=== PATIENT | female | born 1960 | race Caucasian/White ===

== ENCOUNTER 2021-07-26 18:14 | Emergency (ER) | payer MEDICAID ==
[~2021-07-26] VITALS: Ht 152.4 cm; Wt 62.0 kg
[2021-07-26 18:26] VITALS: BP 137/68
== END 2021-07-26 22:36 | disposition left against medical advice (07) ==
LOC: ER 18:14
DX: M54.50 Low back pain, unspecified (principal); Z53.21 Procedure and treatment not carried out due to patient leaving prior to being seen by health care provider